=== PATIENT | male | born 1945 ===

== ENCOUNTER 2019-06-19 09:05 | Outpatient (CLI) | payer MEDICARE, OTHER ==
--- NOTE | 2019-06-19 10:15 | ULT ---
ULTRASOUND GALLBLADDER RIGHT UPPER QUADRANT: CLINICAL HISTORY: Right upper quadrant pain. Diarrhea.. COMPARISON: None. FINDINGS: Pancreas: Obscured by bowel gas. Liver:Heterogeneous echotexture which may be due to hepatic steatosis or hepatocellular disease. Limi mikie evaluation for hepatic masses and intrahepatic biliary dilatation. Right hepatic lobe: 15.9 cm. Gallbladder: No sonographic evidence of cholelithiasis, gallbladder wall thickening or pericholecysti c fluid. Burns's sign:Negative. Portal Vein: Patent. Appropriate directional flow. Bile ducts: Suboptimal evaluation of the common bile duct. Right kidney: No hydronephrosis. Right kidney measures 13.2 x 6.7 x 6.8 cm in length. 2 separate anec hoic foci in the right kidney measuring 6.2 x 4.7 x 5.2 cm in the midpole and 10.0 x 9.0 x 9.2 cm the lower pole. Renal cortical cysts are favored. IMPRESSION: 1. No sonographic evidence of cholelithiasis. 2. Suboptimal evaluation the common bile duct. 3. Heterogeneous hepatic parenchymal echotexture. If there is concern for hepatic masses, liver mass protocol CT can be performed. Transcribed Date/Time: 06/19/2019 10:45 AM
== END 2019-06-19 09:06 | disposition home or self-care (01) ==
LOC: SCSULT 09:05
PROVIDERS: ATTEND Internal Medicine Gastroenterology
DX: K14.3 Hypertrophy of tongue papillae (principal); R10.11 Right upper quadrant pain; R19.7 Diarrhea, unspecified; K76.89 Other specified diseases of liver
CPT/HCPCS: 76705